=== PATIENT | male | born 1990 | race Caucasian/White ===

== ENCOUNTER 2023-12-19 12:57 | Emergency (ER) | payer MEDICAID, SELFPAY ==
[2023-12-19 13:00] VITALS: BP 122/72; PULSE 73; RESP 16; TEMP 36.8; O2SAT 100; BMI 30.7
--- NOTE | 2023-12-19 13:23 | US_ITS ---
Patient: JOSR REID Facility:?[facility] Patient ID:?[id number] Site Patient ID:?[id number]. Site :?1990 Study:?US-Testicle SCROTUM-12/19/2023 1:57:56 PM Ordering Physician:?DEION ENG M.D. Final Report: INDICATION: Right scrotal mass not otherwise described in the indication for the exam. COMPARISON: None available. TECHNIQUE: Grayscale and spectral Doppler ultrasound of the scrotum. FINDINGS: Right Testicle: Size: 3.7 x 2.8 x 5.6cm. Echotexture: Tubular ectasia of the rete testis is noted. No focal intratesticular lesion. Color and Spectral Doppler blood flow: Color Doppler US demonstrates symmetrical intraparenchymal blood flow compared to the contralateral testis. Venous spectral Doppler blood flow is documented. Right Epididymis: Two anechoic unilocular epididymal head cysts are seen adjacent to one another, the larger measuring 1.7 cm and the smaller 1.5 cm. Varicocele: Absent. Hydrocele: Absent. Left Testicle: Size: 3.2 x 2.5 x 5.2cm. Echotexture: Homogeneous. Color and Spectral Doppler blood flow: Color Doppler US demonstrates symmetrical intraparenchymal blood flow compared to the contralateral testis. Arterial and venous spectral Doppler blood flow is documented. Left Epididymis: Unremarkable. Varicocele: Absent. Hydrocele: Small left hydrocele. Soft tissues: Unremarkable. IMPRESSION: Right epididymal head cysts as described above. Incidental findings described in the body of the report. Dictated by Kush Crawford MD @ 12/19/2023 2:15:28 PM Signed by:?Kush Crawford MD @12/19/2023 2:15:28 PM (Electronic Signature)
--- NOTE | 2023-12-19 13:23 | CT_ITS ---
Patient: JOSR REID Facility:?[facility] Patient ID:?[id number] Site Patient ID:?[id number]. Site :?1990 Study:?CT-Abdomen/Pelvis W/ 95CC ISOVUE 370-12/19/2023 2:10:29 PM Ordering Physician:DALLIN ENG Final Report: INDICATION: Abdominal pain, not otherwise described. Groin pain, not otherwise described. COMPARISON: Today`s scrotal ultrasound. TECHNIQUE: CT of the abdomen and pelvis with 95 cc of Isovue 370 intravenous contrast. Please note that all CT scans at this facility use dose modulation, iterative reconstruction, and/or weight-based dosing when appropriate to reduce radiation dose to as low as reasonably achievable. FINDINGS: ABDOMEN Liver: Normal hepatic attenuation. Incidental subcentimeter hepatic cyst at the border zone between segments 7 and 8. No suspicious focal hepatic lesion. No intrahepatic biliary ductal dilatation. Patent portal and hepatic veins. Gallbladder: Normal gallbladder size. Normal common duct caliber. No pericholecystic inflammatory changes. Pancreas: Normal pancreatic attenuation. No focal lesion. Normal duct caliber. No peripancreatic inflammatory changes. Spleen: Normal splenic attenuation. No suspicious focal lesion. Patent splenic artery and vein. Adrenal Glands: Symmetrical adrenal glands. No focal lesion of significance. Kidneys: Normal bilateral renal attenuation. No suspicious focal lesion. No obstructing nephrolith or dilatation of the intrarenal collecting systems. Patent renal arteries and veins. Nondilated upper urinary tracts. Gastrointestinal tract: Normal caliber, attenuation and wall thickness of the gastrointestinal tract. No inflammatory changes. Normal mesentery. Normal appendix. Vascular: Abdominal aorta and its major proximal branches including the celiac, superior mesenteric, inferior mesenteric, renal, and bilateral common iliac arteries are patent. Inferior vena cava, portal and superior mesenteric veins are patent. Retroaortic left renal vein. Additional findings: No incidental adenopathy. No significant ascites, free fluid or pneumoperitoneum. PELVIS No bladder lesion is identified. No significant incidental findings related to the prostate and seminal vesicles. No abnormal free fluid. No incidental adenopathy. SKELETON AND BODY WALL Fat containing umbilical hernia. A brace of right epididymal head cysts and a small left hydrocele are noted incidentally, demonstrated to better advantage on today`s scrotal ultrasound. Please refer to that report. Central superior L2 vertebral body Schmorl`s node. LOWER THORAX Partially included lower thoracic wall, lungs, pleural spaces and mediastinum are otherwise without significant incidental findings. IMPRESSION: 1. No acute findings to explain abdominal and groin pain. 2. Incidental findings described above. Please note that all CT scans at this facility use dose modulation, iterative reconstruction, and/or weight-based dosing when appropriate to reduce radiation dose to as low as reasonably achievable. Dictated by Kush Crawford MD @ 12/19/2023 2:22:22 PM Signed by:?Kush Crawford MD @12/19/2023 2:22:22 PM (Electronic Signature)
--- NOTE | 2023-12-19 13:25 | ED.GENADULT ---
HPI - General Adult General Chief complaint: Abdominal Pain Stated complaint: abdominal pain Time Seen by Provider: 12/19/23 13:03 Source: patient Mode of arrival: ambulatory Limitations: no limitations History of Present Illness HPI narrative: 33-year-old male coming in today complaining of right-sided abdominal pain going on for about a week. Pain got significantly worse yesterday. He has been feeling nauseated with decreased appetite. He denies vomiting. He denies any fevers or chills. States that he has about 3 bowel movements per day which is unusual for him he generally has 1-2 bowel movements per day. He denies any urinary symptoms. Movement makes the pain worse. Nothing seems to make it better. He is also concerned about a scrotal mass that he felt about 2 months ago. Located on the top of the right scrotum sometimes it feels tender but generally does not bother him. He denies any skin changes to the scrotum. Past medical history is benign, he denies any chronic medical issues. Past surgical history includes a shoulder surgery as a teenager. He takes no daily medications and has no known drug allergies. He denies any family history of illnesses that he is aware of. He smokes maybe 1 cigarette and hits in nicotine vape daily. He does smoke THC daily. Denies alcohol use. Related Data Home Medications Medication Instructions Recorded Confirmed No Known Home Medications 12/19/23 12/19/23 Allergies Allergy/AdvReac Type Severity Reaction Status Date / Time No Known Drug Allergies Allergy Verified 10/18/22 18:31 Review of Systems Status of ROS: Reports: 10 or more systems reviewed and unremarkable except as noted in History and below [facility] Social History Smoking Status: Current every day smoker Exam Narrative: Exam Narrative: Well-nourished well-developed patient in no acute distress. Alert and oriented. Answers questions appropriately. Mood and affect are appropriate. Thoughts are goal oriented and rational. No tangential or magical thinking noted. Patient speaks in full sentences without needing to catch his breath. HEENT: Normocephalic atraumatic. Pupils are equally round reactive to light. Extraocular muscles are intact. Conjunctivae are moist without any icterus noted. Moist mucous membranes. Neck is soft without any lymphadenopathy or thyromegaly. No masses are appreciated. Cardiovascular: Heart is regular rate and rhythm S1 and S2 are present without any murmurs. Lungs: Clear to auscultation bilaterally no wheezes rhonchi or rales are appreciated. Patient takes deep breaths without any discomfort. Abdomen: Soft and nondistended with hypoactive bowel sounds. He has tenderness on the right lower quadrant, worse at McBurney's point. Extremities: Bilateral lower extremities are without edema. Normal DP and PT pulses. Skin: Well perfused without any obvious rashes. : Patient has 2 firm masses on the superior pole of the right testicle, in the location of the epididymis. There is no overlying skin changes. Right testicle feels normal. Penis is normal appearance. Const: Vital Signs, click to edit/add: Vital Signs - 24 hr 12/19/23 13:00 12/19/23 14:24 Temperature 98.2 F Pulse Rate [Pulse Oximeter] 73 64 Respiratory Rate 16 Blood Pressure [Ri ght Upper Arm] 122/72 115/75 Pulse Oximetry 100 95 Oxygen Delivery Me thod Room Air Room Air Course Course ED Course: IV is established and patient received a L of normal saline, 2 mg of IV morphine and IV Zofran. Blood work is unremarkable. UA is normal. Abdominal CT is unremarkable aside from a fat containing umbilical hernia which is not the location of the patient's pain. Scrotal ultrasound was also done and showed 2 epididymal head cysts. Vital Signs Vital signs: Initial Vital Signs Temperature 98.2 F 12/19/23 13:00 Temperature Source Temporal Artery Scan 12/19/23 13:00 Pulse Rate 73 12/19/23 13:00 Respiratory Rate 16 12/19/23 13:00 Blood Pressure 122/72 12/19/23 13:00 Blood Pressure Mean 88 12/19/23 13:00 Blood Pressure Position Supine 12/19/23 13:00 Pulse Oximetry 100 12/19/23 13:00 Oxygen Delivery Method Room Air 12/19/23 13:00 Vital Signs Temperature 98.2 F 12/19/23 13:00 Pulse Rate 73 12/19/23 13:00 Respiratory Rate 16 12/19/23 13:00 Blood Pressure 122/72 12/19/23 13:00 Pulse Oximetry 100 12/19/23 13:00 Oxygen Delivery Method Room Air 12/19/23 13:00 Temperature 98.2 F 12/19/23 13:00 Pulse Rate 64 12/19/23 14:24 Respiratory Rate 16 12/19/23 13:00 Blood Pressure 115/75 12/19/23 14:24 Pulse Oximetry 95 12/19/23 14:24 Oxygen Delivery Method Room Air 12/19/23 14:24 Medications Administered Medications: Discontinued Medications Generic Name Dose Route Start Last Admin Trade Name Vinhq PRN Reason Stop Dose Admin Sodium Chloride 1,000 mls @ 1,000 mls/hr 12/19/23 13:30 12/19/23 14:09 0.9 % Sodium Chloride 1000 Ml IV 12/19/23 14:29 1,000 mls/hr .Q1H GREG Administration Morphine Sulfate 2 mg 12/19/23 13:24 12/19/23 14:16 Morphine 2 Mg/Ml Inj IVP 12/19/23 13:25 2 mg ONCE ONE Administration Ondansetron HCl 4 mg 12/19/23 13:54 12/19/23 14:16 Ondansetron 2 Mg/Ml Inj IVP 12/19/23 13:55 4 mg ONCE ONE Administration Medical Decision Making MDM Narrative Medical decision making narrative: 33-year-old male with abdominal discomfort of unclear etiology. We discussed symptomatic treatment with NSAIDs, heat and we discussed reasons for follow-up. Epididymal head cysts: Reassurance provided, urology follow-up recommended if they become uncomfortable. Lab Data Lab results reviewed: Yes I reviewed the patient's lab results Labs: Lab Results 12/19/23 12/19/23 Range/Units 13:52 14:30 WBC 11.19 H (4.50-11.00) K/uL RBC 4.90 (4.30-5.90) m/uL Hgb 14.7 (13.5-17.5) gm/dL Hct 43.6 (37.0-53.0) % MCV 89 (80-100) fL MCH 30 (26-34) pg MCHC 34 (32-36) gm/dL RDW Coeff of Bertha 12.9 (11.5-15.5) % Plt Count 317 (140-440) K/uL Neut % (Auto) 66.3 (42.0-72.0) % Lymph % (Auto) 24.2 (20-44) % [place]ent % (Auto) 5.1 (0.0-11.0) % Eos % (Auto) 3.2 (0.0-7.0) % Baso % (Auto) 0.7 (0.0-3.0) % Neut # (Auto) 7.40 H (1.7-7.0) K/uL Lymph # (Auto) 2.70 (0.90-2.90) K/uL [place]ent # (Auto) 0.60 (0.00-0.90) K/UL Eos # (Auto) 0.40 (0.00-0.50) K/uL Baso # (Auto) 0.10 (0.00-0.30) K/uL Abs Immat Gran (auto) 0.10 (0.00-0.30) K/uL Imm/Tot Granulo (auto) 0.5 % Sodium 139 (135-149) mmol/L Potassium 3.9 (3.6-5.1) mmol/L Chloride 104 (96-114) mmol/L Carbon Dioxide 28 (20-32) mmol/L Anion Gap 7 (7-15) mEq/L BUN 13 (5-24) mg/dL Creatinine 0.9 (0.5-1.5) mg/dL Estimated Creat Clear 104.36 Estimated GFR 115 ml/min Glucose 94 (60-115) mg/dL Lactate 0.7 (0.5-1.9) mmol/L Calcium 9.5 (8.4-10.6) mg/dL Total Bilirubin 0.5 (0.1-1.5) mg/dL Direct Bilirubin 0.1 (0.0-0.5) mg/dL AST 37 H (12-35) U/L ALT 38 (4-50) U/L Alkaline Phosphatase 43 (40-150) U/L C-Reactive Protein < 0.5 L (0.5-1.0) mg/dL Total Protein 7.8 (6.0-8.3) g/dL Albumin 4.9 (3.3-5.0) g/dL Lipase 53 (23-300) U/L Urine Color Yellow (Yellow) Urine Appearance Clear (Clear) Urine pH 7.5 (5.0-8.5) Ur Specific [place] 1.015 (1.000-1.030) Urine Protein Negative (Negative) Urine Glucose (UA) Negative (Negative) Urine Ketones Negative (Negative) Urine Blood Negative (Negative) Urine Nitrite Negative (Negative) Urine Bilirubin Negative (Negative) Urine Urobilinogen 0.2 (0.2-1.0) Ur Leukocyte Esterase Negative (Negative) Urine RBC 0-2 (0-2) Urine WBC 0-2 (0-5) Ur Squamous Epith Cells Few (None-Few) Urine Bacteria None (None) Imaging Data CT scan - abdomen: Attestation: I have reviewed the pertinent imaging results. Radiologist's impression: INDICATION: Abdominal pain, not otherwise described. Groin pain, not otherwise described. COMPARISON: Today`s scrotal ultrasound. TECHNIQUE: CT of the abdomen and pelvis with 95 cc of Isovue 370 intravenous contrast. Please note that all CT scans at this facility use dose modulation, iterative reconstruction, and/or weight-based dosing when appropriate to reduce radiation dose to as low as reasonably achievable. FINDINGS: ABDOMEN Liver: Normal hepatic attenuation. Incidental subcentimeter hepatic cyst at the border zone between segments 7 and 8. No suspicious focal hepatic lesion. No intrahepatic biliary ductal dilatation. Patent portal and hepatic veins. Gallbladder: Normal gallbladder size. Normal common duct caliber. No pericholecystic inflammatory changes. Pancreas: Normal pancreatic attenuation. No focal lesion. Normal duct caliber. No peripancreatic inflammatory changes. Spleen: Normal splenic attenuation. No suspicious focal lesion. Patent splenic artery and vein. Adrenal Glands: Symmetrical adrenal glands. No focal lesion of significance. Kidneys: Normal bilateral renal attenuation. No suspicious focal lesion. No obstructing nephrolith or dilatation of the intrarenal collecting systems. Patent renal arteries and veins. Nondilated upper urinary tracts. Gastrointestinal tract: Normal caliber, attenuation and wall thickness of the gastrointestinal tract. No inflammatory changes. Normal mesentery. Normal appendix. Vascular: Abdominal aorta and its major proximal branches including the celiac, superior mesenteric, inferior mesenteric, renal, and bilateral common iliac arteries are patent. Inferior vena cava, portal and superior mesenteric veins are patent. Retroaortic left renal vein. Additional findings: No incidental adenopathy. No significant ascites, free fluid or pneumoperitoneum. PELVIS No bladder lesion is identified. No significant incidental findings related to the prostate and seminal vesicles. No abnormal free fluid. No incidental adenopathy. SKELETON AND BODY WALL Fat containing umbilical hernia. A brace of right epididymal head cysts and a small left hydrocele are noted incidentally, demonstrated to better advantage on today`s scrotal ultrasound. Please refer to that report. Central superior L2 vertebral body Schmorl`s node. LOWER THORAX Partially included lower thoracic wall, lungs, pleural spaces and mediastinum are otherwise without significant incidental findings. IMPRESSION: 1. No acute findings to explain abdominal and groin pain. 2. Incidental findings described above. Discharge Plan Discharge Clinical Impression: Epididymal cyst, Abdominal pain Patient Disposition: Home, Self-Care Condition: Stable Additional Instructions: Your workup today did not reveal any cause of your abdominal pain. Recommend Tylenol as needed, heat to sore area. Follow-up with your primary care provider if you feel like your pain is not improving. You were also found to have cysts of the epididymis. This is a benign growth. However, if this becomes uncomfortable, you can follow-up with a urologist and have these surgically removed. Prescriptions: No Action No Known Home Medications Follow Up/Referrals: Dre Foley MD [Primary Care Provider] - Stand Alone Forms: [facility] Info Instructions
[2023-12-19 13:56] LABS: Lactate* 0.7 mmol/L (0.5-1.9)
[2023-12-19 14:00] LABS: Basophils Percent Auto 0.7 % (0.0-3.0); Eosinophils Percent Auto 3.2 % (0.0-7.0); Hematocrit 43.6 % (37.0-53.0); Hemoglobin* 14.7 gm/dL (13.5-17.5); Immature Granulocytes Pct Auto 0.5 %; Lymphocytes Percent Auto 24.2 % (20-44); Mean Corpuscular HGB Conc 34 gm/dL (32-36); Mean Corpuscular Hemoglobin 30 pg (26-34); Mean Corpuscular Volume 89 fL (80-100); Monocytes Percent Auto 5.1 % (0.0-11.0); Neutrophils Percent Auto 66.3 % (42.0-72.0); Platelet Count* 317 K/uL (140-440); RDW Coefficient of Variation % 12.9 % (11.5-15.5); White Blood Count* 11.19 K/uL (4.50-11.00)
[2023-12-19 14:01] LABS: Slide Review Reflex No
[2023-12-19] MEDS: 0.9 % SODIUM CHLORIDE 1000 ml 1,000 ML IV (14:09)
[2023-12-19 14:12] LABS: Albumin* 4.9 g/dL (3.3-5.0)
[2023-12-19 14:13] LABS: Chloride* 104 mmol/L (96-114); Potassium* 3.9 mmol/L (3.6-5.1); Sodium* 139 mmol/L (135-149)
[2023-12-19 14:15] LABS: Alkaline Phosphatase* 43 U/L (40-150); Aspartate Amino Transferase* 37 U/L (12-35); Bilirubin Direct* 0.1 mg/dL (0.0-0.5); Bilirubin Total* 0.5 mg/dL (0.1-1.5); Lipase* 53 U/L (23-300); Total Protein* 7.8 g/dL (6.0-8.3)
[2023-12-19 14:16] LABS: Alanine Aminotransferase* 38 U/L (4-50); Creatinine* 0.9 mg/dL (0.5-1.5); Est. Creatinine Clearance* 104.36; Estimated Glomerular Filt Rate 115 ml/min
[2023-12-19] MEDS: ONDANSETRON 2 MG/ML inj 4 MG IVP (14:16)
[2023-12-19] MEDS: MORPHINE 2 MG/ML inj IVP (14:16)
[2023-12-19 14:17] LABS: Anion Gap 7 mEq/L (7-15); Blood Urea Nitrogen* 13 mg/dL (5-24); Calcium* 9.5 mg/dL (8.4-10.6); Carbon Dioxide* 28 mmol/L (20-32); Glucose* 94 mg/dL (60-115)
[2023-12-19 14:21] LABS: C Reactive Protein* < 0.5 mg/dL (0.5-1.0)
[2023-12-19 14:24] VITALS: BP 115/75; PULSE 64; O2SAT 95
[2023-12-19 14:39] LABS: Appearance Urine Clear (Clear); Bilirubin Urine Negative (Negative); Blood Urine Negative (Negative); Color Urine Yellow (Yellow); Glucose Urine Negative (Negative); Ketones Urine Negative (Negative); Leukocyte Esterase Urine Negative (Negative); Nitrite Urine Negative (Negative); Protein Urine Negative (Negative); Specific Gravity Urine 1.015 (1.000-1.030); Urobilinogen Urine 0.2 (0.2-1.0); pH Urine 7.5 (5.0-8.5)
[2023-12-19 14:48] LABS: RBC Urine 0-2 (0-2); Squamous Epithelial Cell Urine Few (None-Few); WBC Urine 0-2 (0-5)
== END 2023-12-19 15:47 | disposition home or self-care (01) ==
PROVIDERS: Emergency Provider Family Medicine; PCP Family Medicine
DX: N50.3 Cyst of epididymis (principal)
CPT/HCPCS: 36415; 74177; 76870; 80048; 80076; 81001; 83605; 83690; 85025; 86140; 87086; 93976; 96374; 96375; 99284; 99285; J2270; J2405; J7030; Q9967